=== PATIENT | female | born 2000 | race Caucasian/White ===

== ENCOUNTER 2023-06-20 08:00 | Outpatient (CLI) | payer MEDICAID ==
[2023-06-20 22:57] LABS: CHLAMYDIA TRACHOMATIS DNA NEGATIVE (NEGATIVE); NEISSERIA GONORRHOEAE DNA NEGATIVE (NEGATIVE); TRICHOMONAS VAGINALIS DNA NEGATIVE (NEGATIVE)
== END 2023-06-20 23:59 | disposition home or self-care (01) ==
LOC: LAB.WC 08:00
PROVIDERS: ATTEND Nurse Practitioner
DX: Z11.3 Encounter for screening for infections with a predominantly sexual mode of transmission (principal)
CPT/HCPCS: 87491; 87591; 87661

== ENCOUNTER 2024-01-26 08:00 | Outpatient (CLI) | payer MEDICAID ==
--- NOTE | 2024-01-26 10:17 | XRAY Report ---
PROCEDURE: Chest 2V INDICATIONS: ACUTE COUGH TECHNIQUE: 2 views of the chest were acquired. COMPARISON: None. FINDINGS: Surgical changes and devices: None. Lungs and pleura: No pleural effusions or pneumothorax. Lungs are clear. Mediastinum: Mediastinal contours appear normal. Heart size is normal. Bones and chest wall: No suspicious bony lesions. Overlying soft tissues appear unremarkable. IMPRESSION: No acute cardiopulmonary process. Reviewed by: Mk Chi MD on 01/26/2024 10:15 AM PDT Approved by: Mk Chi MD on 01/26/2024 10:15 AM PDT Station ID: [id number]
== END 2024-01-26 23:59 | disposition home or self-care (01) ==
LOC: DI.S 08:00
PROVIDERS: ATTEND Registered Nurse
DX: R05.1 Acute cough (principal)

== ENCOUNTER 2024-01-30 06:38 | Emergency (ER) | payer MEDICAID ==
[2024-01-30 07:00] VITALS: BP 117/71; O2SAT 98
--- NOTE | 2024-01-30 07:25 | ED Physician Documentation ---
PD HPI URI - Stated complaint Stated Complaint: COUGH,UNWELL - Chief complaint Chief Complaint: Resp - Additional information Additional information: Generally healthy 23-year-old female with more than 2 weeks of URI symptoms. She reports that she has had cough congestion and generalized malaise over the past 2 weeks. She has been seen at an outside urgent care twice. She is the first time she had a viral panel which was negative. She was given antibiotics. The next time she had a chest x-ray which was clear. She was given an inhaler. She is using an inhaler with some relief. She is never had asthma before is not having fevers. Has been home from work for the entire duration of this illness. No myalgias no sputum production no ill contacts. Review of Systems Constitutional: denies: Fever, Myalgias Nose: denies: Rhinorrhea / runny nose Respiratory: reports: Cough, Wheezing PD PAST MEDICAL HISTORY - Past Medical History Past Medical History: No - Past Surgical History Past Surgical History: No - Present Medications Home Medications: Ambulatory Orders Medication Instructions Recorded Confirmed Albuterol Sulfate [Proair 2 puffs IH Q6HR PRN 01/30/24 01/30/24 Digihaler] Benzonatate [Tessalon] 1 cap PO TID PRN 01/30/24 01/30/24 Ondansetron Odt [Zofran] 4 mg TL Q6H PRN #10 tablet 01/30/24 predniSONE [Deltasone] 40 mg PO DAILY #8 tab 01/30/24 - Allergies Allergies/Adverse Reactions: Allergies Allergy/AdvReac Type Severity Reaction Status Date / Time No Known Drug Allergies Allergy Verified 01/30/24 06:51 - Social History Does the pt smoke?: No Smoking Status: Never smoker Does the pt drink ETOH?: No Does the pt have substance abuse?: No - Immunizations Immunizations are current?: Yes - POLST Patient has POLST: No PD ED PE NORMAL - Vitals Vital signs reviewed: Yes - General General: Alert and oriented X 3, No acute distress - HEENT HEENT: Ears normal, Moist mucous membranes, Pharynx benign - Neck Neck: Supple, no meningeal sign - Cardiac Cardiac: RRR, No murmur - Respiratory Respiratory: Other (Clear bilaterally. With forced expiration does have a little bit of wheeze and cough. No respiratory distress) - Abdomen Abdomen: Soft - Derm Derm: No rash Results - Vitals Vitals: Vital Signs - 24 hr 01/30/24 06:44 Temperature 37.2 C Heart Rate 95 Respiratory 18 Rate Blood Pressure 117/71 O2 Saturation 98 Oxygen O2 Source Room air PD Medical Decision Making - ED course Complexity details: considered differential, d/w patient ED course: URI symptoms for more than 2 weeks. Viral panel and chest x-ray have been negative which is not surprising. She has a nonspecific viral illness. She does have some bronchospasm and cough associated with that she has been getting relief from inhalers, may be a little bit of prednisone may help with the wheezy cough. Will give her 40 mg here and prescription for 4 more days. She should continue the albuterol as needed and otherwise vzzr-nxd-[id number] meds. We discussed the fact that antibiotics will not help with this. She requested an IV for fluids, I note she is quite well-hydrated. Will give her some p.o. Zofran and encourage oral hydration. Departure - Departure
[2024-01-30] MEDS: predniSONE 20 MG TABLET PO STA (07:38)
== END 2024-01-30 07:41 | disposition home or self-care (01) ==
LOC: ED 06:38
DX: J98.01 Acute bronchospasm (principal); R05.9 Cough, unspecified; R06.2 Wheezing; Z79.899 Other long term (current) drug therapy
CPT/HCPCS: 99283; J7512

== ENCOUNTER 2024-03-05 08:00 | Outpatient (CLI) | payer MEDICAID ==
[2024-03-05 22:28] LABS: CHLAMYDIA TRACHOMATIS DNA NEGATIVE (NEGATIVE); NEISSERIA GONORRHOEAE DNA NEGATIVE (NEGATIVE); TRICHOMONAS VAGINALIS DNA NEGATIVE (NEGATIVE)
== END 2024-03-05 23:59 | disposition home or self-care (01) ==
LOC: LAB.WC 08:00
PROVIDERS: ATTEND Nurse Practitioner
DX: Z11.3 Encounter for screening for infections with a predominantly sexual mode of transmission (principal)
CPT/HCPCS: 87491; 87591; 87661

== ENCOUNTER 2024-04-11 08:52 | Outpatient (CLI) | payer MEDICAID ==
[2024-04-11 14:58] LABS: BASOPHILS # (AUTO) 0.1 10^3/uL (0.0-0.1); EOSINOPHILS # (AUTO) 0.1 10^3/uL (0.0-0.7); EOSINOPHILS % (AUTO) 1.1 %; HCT - HEMATOCRIT 41.1 % (37.0-47.0); HGB - HEMOGLOBIN 13.9 g/dL (12.0-16.0); LYMPHOCYTES # (AUTO) 2.7 10^3/uL (1.5-3.5); MEAN CORPUSCULAR HGB CONC 33.8 g/dL (32.0-36.0); MEAN CORPUSCULAR VOLUME 91.5 fL (81.0-99.0); MEAN PLATELET VOLUME 9.9 fL (7.9-10.8); MONOCYTES # (AUTO) 0.7 10^3/uL (0.0-1.0); NEUTROPHILS # (AUTO) 6.3 10^3/uL (1.5-6.6); NEUTROPHILS % (AUTO) 63.6 %; PLT - PLATELET COUNT 379 10^3/uL (130-450); RED BLOOD COUNT 4.49 10^6/uL (4.20-5.40); RED CELL DISTRIBUTION WIDTH 12.7 % (12.0-15.0); WHITE BLOOD COUNT 9.9 x10^3/uL (4.8-10.8)
[2024-04-12 03:10] LABS: HBsAG SCREEN Negative (Negative)
[2024-04-12 08:10] LABS: VARICELLA-ZOSTER AB IGG 199 index (Immune >165)
[2024-04-12 13:11] LABS: RPR Non Reactive (Non Reactive)
[2024-04-13 01:08] LABS: HIV SCREEN 4TH GENERATION Non Reactive (Non Reactive)
== END 2024-04-11 08:53 | disposition home or self-care (01) ==
LOC: LAB.S 08:52
PROVIDERS: ATTEND Nurse Practitioner
DX: Z31.69 Encounter for other general counseling and advice on procreation (principal)
CPT/HCPCS: 36415; 84702; 85025; 86592; 86762; 86787; 86803; 86850; 86900; 86901; 87340; 87389

== ENCOUNTER 2024-04-15 10:32 | Outpatient (CLI) | payer MEDICAID | END 2024-04-15 10:33 | disposition home or self-care (01) | LOC: LAB 10:32 | PROVIDERS: ATTEND Nurse Practitioner | DX: Z32.01 Encounter for pregnancy test, result positive (principal) | CPT/HCPCS: 36415; 84702 ==

== ENCOUNTER 2024-05-07 08:00 | Outpatient (CLI) | payer MEDICAID ==
[2024-05-07 15:56] LABS: BILIRUBIN,URINE NEGATIVE (NEGATIVE); GLUCOSE, URINE (UA) NEGATIVE (NEGATIVE); KETONES,URINE (UA) 40 mg/dL (NEGATIVE); LEUKOCYTE ESTERASE, URINE NEGATIVE (NEGATIVE); NITRITE,URINE NEGATIVE (NEGATIVE); OCCULT BLOOD,URINE MODERATE (NEGATIVE); PROTEIN,URINE NEGATIVE (NEGATIVE); UROBILINOGEN,URINE 0.2 (NORMAL) E.U./dL (NORMAL)
[2024-05-07 15:57] LABS: CLARITY,URINE CLOUDY (CLEAR)
[2024-05-07 15:59] LABS: BACTERIA,URINE Many /HPF (None Seen); SQUAMOUS EPITHELIAL CELL,UR NONE SEEN (<= Few)
== END 2024-05-07 23:59 | disposition home or self-care (01) ==
LOC: LAB.WC 08:00
PROVIDERS: ATTEND Nurse Practitioner
DX: Z34.90 Encounter for supervision of normal pregnancy, unspecified, unspecified trimester (principal)
CPT/HCPCS: 81001; 87086

== ENCOUNTER 2024-05-13 13:43 | Outpatient (CLI) | payer MEDICAID ==
--- NOTE | 2024-05-13 18:54 | Ultrasound Report ---
PROCEDURE: OB 1st Trimester w/TV INDICATIONS: POSITIVE TEST OUTSIDE/PRIOR DATING DATA: Last menstrual period (LMP): 03/16/2024. LMP-based estimated date of delivery (DAVID): 12/21/2024. First dating scan (date and location): 05/13/2024. Estimated date of delivery (DAVID) from first dating scan: 12/19/2024. TECHNIQUE: Real-time scanning was performed of the fetus and maternal pelvic organs, with image documentation. Endovaginal scanning was also performed to better visualize the fetus and maternal ovaries. COMPARISON: None. FINDINGS: Intrauterine gestational sac present. Embryo: pole with crown-rump length measuring 1.5 cm, consistent with 8 weeks and 4 days. Heart rate: 164 bpm. Other: No perigestational fluid collection. Normal yolk sac is identified. Measurement variability in dating: +/- 4 weeks by LMP, +/- 7 days by mean sac diameter (use before 6 weeks gestation if crown-rump length not able to be measured), +/- 5 days by crown-rump length (6-12 weeks gestation). Maternal organs: Ovaries appear within normal limits. Right corpus luteal cyst measuring 2.5 cm. IMPRESSION: Single live intrauterine consistent with 8 weeks and 4 days. Reviewed by: Akin Mclaughlin MD on 05/13/2024 6:52 PM PDT Approved by: Akin Mclaughlin MD on 05/13/2024 6:52 PM PDT Station ID: [id number]
== END 2024-05-13 13:44 | disposition home or self-care (01) ==
LOC: DI 13:43
PROVIDERS: ATTEND Nurse Practitioner
DX: Z34.91 Encounter for supervision of normal pregnancy, unspecified, first trimester (principal)

== ENCOUNTER 2024-06-07 08:39 | Outpatient (CLI) | payer MEDICAID ==
[2024-06-07 08:56] LABS: BASOPHILS # (AUTO) 0.1 10^3/uL (0.0-0.1); BASOPHILS % (AUTO) 0.6 %; EOSINOPHILS # (AUTO) 0.1 10^3/uL (0.0-0.7); EOSINOPHILS % (AUTO) 0.9 %; HCT - HEMATOCRIT 38.1 % (37.0-47.0); HGB - HEMOGLOBIN 13.1 g/dL (12.0-16.0); LYMPHOCYTES # (AUTO) 2.4 10^3/uL (1.5-3.5); LYMPHOCYTES % (AUTO) 25.4 %; MEAN CORPUSCULAR HEMOGLOBIN 29.8 pg (27.0-31.0); MEAN CORPUSCULAR HGB CONC 34.4 g/dL (32.0-36.0); MEAN CORPUSCULAR VOLUME 86.8 fL (81.0-99.0); MEAN PLATELET VOLUME 9.5 fL (7.9-10.8); MONOCYTES # (AUTO) 0.5 10^3/uL (0.0-1.0); MONOCYTES % (AUTO) 4.9 %; NEUTROPHILS # (AUTO) 6.5 10^3/uL (1.5-6.6); NEUTROPHILS % (AUTO) 67.7 %; PLT - PLATELET COUNT 346 10^3/uL (130-450); RED BLOOD COUNT 4.39 10^6/uL (4.20-5.40); RED CELL DISTRIBUTION WIDTH 11.7 % (12.0-15.0); WHITE BLOOD COUNT 9.6 x10^3/uL (4.8-10.8)
[2024-06-08 01:08] LABS: HIV SCREEN 4TH GENERATION Non Reactive (Non Reactive)
[2024-06-08 04:10] LABS: HBsAG SCREEN Negative (Negative)
[2024-06-08 06:11] LABS: RPR Non Reactive (Non Reactive)
[2024-06-08 13:10] LABS: VARICELLA-ZOSTER AB IGG 157 index (Immune >165)
[2024-06-08 23:09] LABS: HCV AB Non Reactive (Non Reactive)
== END 2024-06-07 08:40 | disposition home or self-care (01) ==
LOC: LAB 08:39
PROVIDERS: ATTEND Nurse Practitioner
DX: Z34.90 Encounter for supervision of normal pregnancy, unspecified, unspecified trimester (principal)
CPT/HCPCS: 36415; 85025; 86592; 86762; 86787; 86803; 86850; 86900; 86901; 87340; 87389

== ENCOUNTER 2024-06-12 11:43 | Outpatient (CLI) | payer MEDICAID ==
[2024-06-12 11:55] LABS: BILIRUBIN,URINE NEGATIVE (NEGATIVE); GLUCOSE, URINE (UA) NEGATIVE (NEGATIVE); KETONES,URINE (UA) NEGATIVE (NEGATIVE); LEUKOCYTE ESTERASE, URINE TRACE (NEGATIVE); NITRITE,URINE NEGATIVE (NEGATIVE); OCCULT BLOOD,URINE SMALL (NEGATIVE); PROTEIN,URINE NEGATIVE (NEGATIVE); UROBILINOGEN,URINE 0.2 (NORMAL) E.U./dL (NORMAL)
[2024-06-12 12:24] LABS: BACTERIA,URINE Moderate /HPF (None Seen); CLARITY,URINE CLEAR (CLEAR); RBC,URINE 0-5 /HPF (0-5); SQUAMOUS EPITHELIAL CELL,UR MOD Squamous (<= Few); WBC,URINE 0-3 /HPF (0-5)
[2024-06-12 12:57] LABS: MUCUS,URINE Moderate Strands
[2024-06-12 18:07] LABS: CHLAMYDIA TRACHOMATIS DNA NEGATIVE (NEGATIVE); NEISSERIA GONORRHOEAE DNA NEGATIVE (NEGATIVE); TRICHOMONAS VAGINALIS DNA NEGATIVE (NEGATIVE)
== END 2024-06-12 11:44 | disposition home or self-care (01) ==
LOC: LAB.WC 11:43
PROVIDERS: ATTEND Nurse Practitioner
DX: Z34.90 Encounter for supervision of normal pregnancy, unspecified, unspecified trimester (principal)
CPT/HCPCS: 81001; 87086; 87491; 87591; 87661

== ENCOUNTER 2024-12-02 18:52 | Inpatient (IN) ==
[2024-12-02] MEDS: LACTATED RINGERS 1,000 ML IV SCH (19:10)
[2024-12-02] MEDS ORDERED: LACTATED RINGERS 1,000 ML ONE (19:12)
[2024-12-02] MEDS ORDERED: ceFAZolin (2G) 2 GM in SODIUM CHLORIDE 0.9% MINIBAG 100 ML IV ONE (19:18)
--- NOTE | 2024-12-02 19:18 | HISTORY & PHYSICAL EXAMINATION ---
Admit History Smoking Status: Never smoker Other Maternal History Other Maternal History: HPI: Patient is a 24-year-old at 37 weeks 2 days gestation presenting with contractions that started approximately 45 minutes ago. On arrival, she is still breech presentation and approxi-5 cm dilated, jackie regularly. Decision made to proceed with primary low-transverse section.. She has good movement. Denies loss of fluid. No LOPEZ/BV or RUQP. No vaginal bleeding. Denies nausea and vomiting. Denies urinary urgency or dysuria. All other symptoms reviewed and were negative except per HPI. Course Problems: Breech presentation ALLERGIES: NKDA RX: PNV, Tums, Omeprazole LMP: 03/16/24 DAVID by LMP: 12/21/24 US: 05/13/2024 @ 8.4wks c/w LMP dating (DAVID by U/S 12/20/2023) Final DAVID: 12/21/2024 Pre- Weight:155.6 BMI: 24.46 Blood type: O- RHOGAM 10/11/24 Rh: negative Antibody: Negative CBC: PLT 346 HCT 38.1% HGB 13.1 RUB:IMMUNE VZV: NON-immune HBsAg: Negtive HepC: NR RPR/AB-EIA: NR HIV: NR PAP:03/03/24 - normal GC/CT: Negative HSV:denies in self and partner Genetic testing: Quad- negative FAS: Placenta: Posterior Cord: 3VC JEANMARIE: 10.9cm EFW: 36.7g; 79%tile 50gm OGCT: 132 TDAP: 11/30/2024 Breast Pump:10/11/24 RHOGAM: 10/11/24 Antibody screen: Negative 3rd trimester H/H/PLT- 12.6/37.6/383 3rd trimester RPR-NR GBS: 11/30/2024 MOD: Anticipate Contraception: Meds/Allgy Home Medications Ambulatory Orders Medication Instructions Recorded Confirmed vits no.126-ferrous fum tab PO .DAILY 07/18/24 11/30/24 28 mg iron-folic acid 800 mcg tablet (Classic ) calcium carbonate (Tums) 300 mg PO BID 08/31/24 11/30/24 omeprazole 20 mg capsule,delayed 20 mg PO BID #60 caps 01/13/25 02/28/25 release Allergies Allergies Allergy/AdvReac Type Severity Reaction Status Date / Time No Known Drug Allergies Allergy Verified 11/30/24 12:59 PFSH Active Problems All Active Problems (Updated 12/02/24 @ 19:23 by Matty Sharpe MD) 37 weeks gestation of (Acute) Breech presentation (Acute) Gastric reflux (Acute) Dyspareunia (Acute) Urinary incontinence in female (Acute) Dysuria (Acute) Normal first in second trimester (Acute) Encounter for other specified screening (Acute) Vaginismus not due to a substance or known physiological condition (Acute) Normal in first trimester (Acute) Ovarian cyst (Acute) Family History Family History Mother Depressed Father Depressed Maternal grandfather Depressed Social History Social History Smoking Status: Never smoker Second hand tobacco smoke exposure: No Do you dip or chew tobacco?: No Do you vape?: No Living arrangement: At home Living Condition: With spouse/s.o. Level: Independent Do you feel safe in your home environment?: Yes Suffered physical, verbal, emotional, or financial abuse?: No History of Abuse: No ETOH Use: None Substance Use: denies use Are you sexually active?: Yes Control Method: None POLST Patient has POLST: No Review of Systems Status of ROS: 10 or more systems reviewed and unremarkable except as noted in history and below Physical Other Notes Labor Progress Note/Additional Text: General: Alert, oriented, no acute distress Head: Normal cephalic atraumatic Eyes: PERRLA, extraocular motions intact. Respiratory: Normal rate of respiration. No accessory muscle use, normal respiratory effort. Cardiovascular: Regular rate and rhythm Abdomen: Gravid, nontender, nondistended Extremities: Normal range of motion Neuro: Oriented x3. Normal movements Psych: Appropriate mood and affect. Normal judgment and insight SVE: 5 cm dilated with a bulging bag. FHT: 120 beats minute baseline, moderate variability, elevations present, no decelerations. Category 1. Mabie: Approximately 3 minutes Plan for Labor Plan For Labor I expect patient to be DC'd or transferred within 96 hours.: Yes Conclusion/Plan Problem List (1) Breech presentation: Plan: Patient jackie regularly, 5 cm dilated. Plan for section. 2 g cefazolin. section was recommended. Risks, benefits and alternatives were discussed including but not limited to infection, bleeding that may require blood products or hysterectomy for life saving measures, injury to surrounding organs including but not limited to bowel, bladder, ureters, tubes and ovaries and/or the baby. Should injury occur it could require longer/additional surgery to repair. The patient stated understanding and desired to proceed. All questions were answered posed by patient. (2) 37 weeks gestation of : Plan: Reassuring heart monitoring.
[2024-12-02] MEDS ORDERED: PHENYLEPHRINE 10 MG/ML VIAL ONE (19:24)
[2024-12-02 19:27] LABS: BASOPHILS % (AUTO) 0.5 %; EOSINOPHILS % (AUTO) 0.6 %; HCT - HEMATOCRIT 34.4 % (37.0-47.0); HGB - HEMOGLOBIN 11.4 g/dL (12.0-16.0); LYMPHOCYTES % (AUTO) 10.7 %; MEAN CORPUSCULAR HGB CONC 33.1 g/dL (32.0-36.0); MEAN CORPUSCULAR VOLUME 87.5 fL (81.0-99.0); MEAN PLATELET VOLUME 9.5 fL (7.9-10.8); MONOCYTES % (AUTO) 9.2 %; NEUTROPHILS % (AUTO) 77.5 %; PLT - PLATELET COUNT 382 10^3/uL (130-450); RED BLOOD COUNT 3.93 10^6/uL (4.20-5.40); RED CELL DISTRIBUTION WIDTH 14.1 % (12.0-15.0); WHITE BLOOD COUNT 24.6 x10^3/uL (4.8-10.8)
[2024-12-02] MEDS ORDERED: ceFAZolin 2 GM VIAL ONE (19:30)
[2024-12-02] MEDS: ACETAMINOPHEN 500 MG TABLET PO ONE (19:33)
[2024-12-02] MEDS: CITRIC ACID/SODIUM CITRATE 15 ML UDC PO ONE (19:34)
[2024-12-02 19:35] LABS: ABNORMAL LYMPHS % (MANUAL) 0 %
[2024-12-02 19:55] LABS: BAND NEUTROPHILS % (MANUAL) 14 %; DIFFERENTIAL COMMENT MANUAL DIFFERENTIAL; EOSINOPHILS # (MANUAL) 0.2 10^3/uL (0-0.7); LYMPHOCYTES # (MANUAL) 2.5 10^3/uL (1.5-3.5); LYMPHOCYTES % (MANUAL) 10 %; METAMYELOCYTES % (MANUAL) 1 %; MONOCYTES # (MANUAL) 0.7 10^3/uL (0.0-1.0); MYELOCYTES % (MANUAL) 2 %; NEUTROPHILS # (MANUAL) 20.4 10^3/uL (1.5-6.6); PLATELET ESTIMATE, MANUAL NORMAL (130-450,000) (NORMAL); PLATELET MORPHOLOGY NORMAL APPEARANCE (NORMAL); RBC MORPHOLOGY (MULTIPLE) NORMAL APPEARANCE (NORMAL); WBC MORPHOLOGY (MULTIPLE) NORMAL APPEARANCE (NORMAL)
[2024-12-02] MEDS ORDERED: ROPIVACAINE 0.5% PF 20 ML VIAL ONE (20:25)
[2024-12-02] MEDS ORDERED: SODIUM CHLORIDE 0.9% 10 ML VIAL IVP ONE (20:26)
[2024-12-02] MEDS ORDERED: ONDANSETRON ODT 4 MG TABLET TL PRN (20:41)
[2024-12-02] MEDS ORDERED: OXYTOCIN/SODIUM CHLORIDE 500 ML IV PRN (20:41)
--- NOTE | 2024-12-02 20:42 | OPERATIVE REPORT ---
Operative Report General Admit Date: 12/02/24 Procedure Data: Operation Date: 12/02/24 20:00 Proposed Procedures p Section(Not Applicable) - Matty Sharpe MD Actual Procedures p Section(Not Applicable) - Matty Sharpe MD Anesthesia Type Spinal Case Staff Anesthesia Provider: Waqas Pan Assisting Provider: Yvonne Cui Case Times Procedure Start: 12/02/24 19:58 Procedure End: 12/02/24 20:35 Time out: 12/02/24 19:55 Pre-Op Diagnosis: Breech presentation, term labor, 37 weeks gestation Post Op Diagnosis: Status post primary low-transverse section Procedure Note Intake, IV Amount (ml): 1,000 Estimated Blood Loss (ml): 650 Output, Urine Amount (ml): 400 Pathology: None Findings: Normal-appearing uterus and ovaries. 1 cm right paratubal cyst. Liveborn with Apgars of 8/9. Complications: None Other Other Information/Narrative: section was recommended. Risks, benefits and alternatives were discussed including but not limited to infection, bleeding that may require blood products or hysterectomy for life saving measures, injury to surrounding organs including but not limited to bowel, bladder, ureters, tubes and ovaries and/or the baby. Should injury occur it could require longer/additional surgery to repair. The patient stated understanding and desired to proceed. All questions were answered posed by patient. Prior to being taken to the OR, 2 grams of cefazolin IV was administered. The patient was taken to the operating room where regional anesthesia was found to be adequate. She was then prepared and draped in the usual sterile fashion in the dorsal supine position with a leftward tilt displacing the uterus. Gannon was draining to gravity. SCDs were on bilateral lower extremities. Time out was felipe en. A pfannenstiel skin incision was then made with the scalpel and carried through to the underlying layer of fascia. The fascia was incised in the midline and the incision extended laterally with the Martinez scissors. The superior aspect of the facial incision was then grasped with the Micky clamps, elevated and the underlying rectus muscles dissected off sharply. Attention was then turned to th e inferior aspect of this incision which in a similar fashion was grasped, elevated with the Micky clamps and the rectus muscle dissected off sharply. The rectus muscles were in the midline. The peritoneum identified, grasped with the pick-ups and entered sharply with the Metzenbaum scissors. The peritoneal incision was then extended superiorly and inferiorly with good visualization of the bladder. The bladder blade was inserted. The vesicouterine peritoneum was identified, grasped with the pick-ups, and entered sharply with Metzenbaum scissors. This incision was then extended laterally and the bladder flap created digitally. The bladder blade was reinserted. The lower uterine segment was identified and incised in a transverse fashion with the scalpel. The uterine incision was then extended bluntly laterally. Artificial rupture of membranes demonstrated clear fluid. The bladder blade was removed. The fetus was in a breech presentation. The buttocks was lifted through the hysterotomy until the legs delivered spontaneously. Again using gentle pressure, the was rotated anteriorly and the left arm was medially rotated flexed, then extended through the hysterotomy. The fetus is then rotated to the opposite side and the right arm was similarly delivered. The head delivered easily thereafter with gentle pressure. The infants mouth and nose were bulb suctioned. The umbilical cord was clamped times two and cut. The infant was handed to the pediatric team. The placenta was removed with gentle traction. Oxytocin was added to the IV fluid and was allowed to run freely. The uterus was exteriorized and cleared of all clots and debris. The uterine incision was inspected and found to be without any extensions and was repaired with 0 Vicryl in a running, locked fashion. A second imbricating layer was performed. Upon inspection, the repaired hysterotomy was found to be hemostatic. The uterus was firm and returned to the abdomen. The gutters were cleared of all clots and debris. The muscle layer was examined and found to be hemostatic. The fascia was reapproximated with 0 Vicryl in a running fashion. The subcutaneous tissue was closed with 2-0 Vicryl. The skin was closed in a subcuticular fashion with 4-0 Monocryl. The patient tolerated the procedure well. Sponge, lap and needle counts were correct times three. The patient was taken to the recovery room in stable condition. I appreciate the assistance of TSERING Velazco during this procedure, and the assistance in retraction, visualization, dissection, and overall assistance during the case were instrumental to the patient's wellbeing. APGARs: 8/9 weight: Pending
--- NOTE | 2024-12-02 21:14 | ANESTHESIA PROCEDURE NOTE ---
Pre-Anesthesia VS, & Labs Diagnosis Surgical Diagnosis:: laboring/breech presentation Procedure Procedure: c section Vitals Weight (kg): 94 kg NPO Last Food Intake: 1830, beef stew Is Patient ?: Yes Estimated Due Date:: 12/02/24 Lab Results Current Lab Results: Laboratory Tests 12/02/24 19:04: WBC 24.6 H, RBC 3.93 L, Hgb 11.4 L, Hct 34.4 L, MCV 87.5, MCH 29.0, MCHC 33.1, RDW 14.1, Plt Count 382, MPV 9.5, Neut # (Auto) Not Reportable, Lymph # (Auto) Not Reportable, [place] # (Auto) Not Reportable, Eos # (Auto) Not Reportable, Baso # (Auto) Not Reportable, Absolute Nucleated RBC Not Reportable, Total Counted 100, Band Neuts % (Manual) 14 H, Abnorm Lymph % (Manual) 0, M etamyelocytes % 1 H, Myelocytes % 2 H, Nucleated RBC % Not Reportable, N eutrophils # (Manual) 20.4 H, Lymphocytes # (Manual) 2.5, Monocytes # (Manual) 0.7, Eosinophils # (Manual) 0.2, Basophils # (Manual) 0.0, Differential Comment MANUAL DIFFERENTIAL, WBC Morphology NORMAL APPEARANCE, Platelet Estimate NORMAL (130-450,000), Platelet Morphology NORMAL APPEARANCE, RBC Morph Micro Appear NORMAL APPEARANCE, Blood Type O NEGATIVE, Antibody Screen POSITIVE Lab results reviewed: Yes 12/02/24 19:04 Meds/Allgy Home Medications Ambulatory Orders Medication Instructions Recorded Confirmed vits no.126-ferrous fum tab PO .DAILY 07/18/24 11/30/24 28 mg iron-folic acid 800 mcg tablet (Classic ) calcium carbonate (Tums) 300 mg PO BID 08/31/24 11/30/24 omeprazole 20 mg capsule,delayed 20 mg PO BID #60 caps 10/15/24 11/30/24 release Allergies Allergies Allergy/AdvReac Type Severity Reaction Status Date / Time No Known Drug Allergies Allergy Verified 11/30/24 12:59 PFSH Active Problems All Active Problems 37 weeks gestation of (Acute) Breech presentation (Acute) Gastric reflux (Acute) Dyspareunia (Acute) Urinary incontinence in female (Acute) Dysuria (Acute) Normal first in second trimester (Acute) Encounter for other specified screening (Acute) Vaginismus not due to a substance or known physiological condition (Acute) Normal in first trimester (Acute) Ovarian cyst (Acute) Family History Family History Mother Depressed Father Depressed Maternal grandfather Depressed Social History Social History Smoking Status: Never smoker Second hand tobacco smoke exposure: No Do you dip or chew tobacco?: No Do you vape?: No Living arrangement: At home Living Condition: With spouse/s.o. Level: Independent Do you feel safe in your home environment?: Yes Suffered physical, verbal, emotional, or financial abuse?: No History of Abuse: No ETOH Use: None Substance Use: denies use Are you sexually active?: Yes Control Method: None POLST Patient has POLST: No POLST Status: Full Code Anesthesia Exam (Expanded) Exam General: Alert and Moderate distress Dental: WNL Mouth Openin Fingerbreadth Neck Mobility: Normal Mallampati classification: II Thyromental Distance: 4-6 cm Plan Plan Anesthesia Type: Spinal and Transverse Abdominis Plane (TAP) Block (bilateral/ post op) Regional Block: Per Surgeon's request for Post Op pain control Consent for Procedure(s) Verified and Reviewed: Yes Code Status: Attempt Resuscitation ASA Classification ASA classification: 1-Healthy patient Is this case an emergency?: Yes
--- NOTE | 2024-12-02 21:16 | ANESTHESIA POST OP EVALUATION ---
Anesthesia Post Eval Post Anesthesia Eval CV Function Including HR & BP: Stable Pain Control: Satisfactory Nausea & Vomiting: Negative Mental Status: Baseline Respiratory Status: Airway Patent Hydration Status: Satisfactory Anesthesia Complications: None
[2024-12-02] MEDS ORDERED: METOCLOPRAMIDE 10 MG/2 ML VIAL IVP PRN (21:17)
[2024-12-02] MEDS ORDERED: ATROPINE ABBOJECT 1 MG/10 ML SYRINGE IVP PRN (21:17)
[2024-12-02] MEDS ORDERED: ONDANSETRON 4 MG/2 ML VIAL IVP PRN (21:17)
[2024-12-02] MEDS ORDERED: MORPHINE 2 MG/ML CARPUJECT IVP PRN (21:17)
[2024-12-02] MEDS ORDERED: NALOXONE 0.4 MG/ML VIAL IVP PRN (21:17)
[2024-12-02] MEDS ORDERED: ePHEDrine 50 MG/ML VIAL IVP PRN (21:17)
[2024-12-02] MEDS ORDERED: fentaNYL 100 MCG/2 ML VIAL IVP PRN (21:17)
[2024-12-02] MEDS ORDERED: HYDROmorphone 1 MG/ML CARPUJECT IVP PRN (21:35)
[2024-12-02] MEDS ORDERED: LACTATED RINGERS 1,000 ML IV SCH (22:00)
[2024-12-02] MEDS ORDERED: KETOROLAC 30 MG/ML VIAL ONE (22:26)
[2024-12-02] MEDS: KETOROLAC 30 MG/ML VIAL IVP SCH (22:28)
[2024-12-03] MEDS: LACTATED RINGERS 1,000 ML IV SCH (01:37)
[2024-12-03] MEDS: ACETAMINOPHEN 500 MG TABLET PO SCH (01:44)
[2024-12-03] MEDS ORDERED: KETOROLAC 30 MG/ML VIAL ONE (04:26)
[2024-12-03 05:50] LABS: BASOPHILS % (AUTO) 0.4 %; EOSINOPHILS % (AUTO) 0.4 %; HCT - HEMATOCRIT 30.7 % (37.0-47.0); HGB - HEMOGLOBIN 10.1 g/dL (12.0-16.0); LYMPHOCYTES % (AUTO) 10.6 %; MEAN CORPUSCULAR HGB CONC 32.9 g/dL (32.0-36.0); MEAN CORPUSCULAR VOLUME 88.2 fL (81.0-99.0); MEAN PLATELET VOLUME 9.3 fL (7.9-10.8); MONOCYTES % (AUTO) 8.1 %; NEUTROPHILS % (AUTO) 79.4 %; PLT - PLATELET COUNT 304 10^3/uL (130-450); RED BLOOD COUNT 3.48 10^6/uL (4.20-5.40); RED CELL DISTRIBUTION WIDTH 14.3 % (12.0-15.0); WHITE BLOOD COUNT 22.1 x10^3/uL (4.8-10.8)
[2024-12-03 06:00] LABS: ABNORMAL LYMPHS % (MANUAL) 0 %
[2024-12-03 06:22] LABS: BAND NEUTROPHILS % (MANUAL) 7 %; LYMPHOCYTES # (MANUAL) 3.5 10^3/uL (1.5-3.5); LYMPHOCYTES % (MANUAL) 16 %; MONOCYTES # (MANUAL) 1.5 10^3/uL (0.0-1.0)
[2024-12-03 06:23] LABS: PLATELET ESTIMATE, MANUAL NORMAL (130-450,000) (NORMAL); PLATELET MORPHOLOGY NORMAL APPEARANCE (NORMAL); RBC MORPHOLOGY (MULTIPLE) NORMAL APPEARANCE (NORMAL)
[2024-12-03 06:24] LABS: WBC MORPHOLOGY (MULTIPLE) NORMAL APPEARANCE (NORMAL)
[2024-12-03 06:25] LABS: DIFFERENTIAL COMMENT MANUAL DIFFERENTIAL
[2024-12-03] MEDS ORDERED: DOCUSATE SODIUM 100 MG CAPSULE PO ONE (07:41)
[2024-12-03] MEDS: DOCUSATE SODIUM 100 MG CAPSULE PO SCH (07:53)
[2024-12-03] MEDS: oxyCODONE 5 MG TABLET PO PRN (07:53)
--- NOTE | 2024-12-03 10:50 | PROVIDER PROGRESS NOTE ---
Subjective Subjective Subjective: Subjective Patient reports she is doing well. Lochia appropriate. Denies heavy bleeding. Ambulating. Pelvic and abdominal pain well-controlled. Tolerating oral intake. Diet: Regular. Voiding without difficulty. Passing flatus. Denies BM. Patient is bonding with baby in room Breast feeding going well. Denies feeling lightheaded, dizzy or excessively fatigued. Objective General: Alert, oriented, no apparent distress. Cardiovascular: Regular rate. Regular rhythm. Lungs: No increased work of breathing. Abdomen: Uterus firm. Below umbilicus. No guarding or rebound. Extremities: No pain on palpation. No cords palpated. Distal pulses intact. Incision: Bandage in place. Current Medications Current Medications Current Medications: Current Medications Generic Name Dose Route Start Last Admin Trade Name Freq PRN Reason Stop Dose Admin Acetaminophen 1,000 mg 12/03/24 00:00 12/03/24 07:52 Acetaminophen 500 Mg Tablet PO 1,000 mg Q6HR TWIN Administration Docusate Sodium 100 mg 12/03/24 09:00 12/03/24 07:53 Docusate Sodium 100 Mg Capsule PO 100 mg DAILY TWIN Administration Lactated Ringer's 1,000 mls @ 100 mls/hr 12/02/24 21:00 12/03/24 01:37 Lr IV 100 mls/hr .Q10H TWIN Administration Ibuprofen 600 mg 12/04/24 06:00 Ibuprofen 600 Mg Tablet PO Q6HR TWIN Ketorolac Tromethamine 30 mg 12/03/24 06:00 12/03/24 10:17 Ketorolac 30 Mg/Ml Vial IVP 12/03/24 18:01 30 mg Q6HR TWIN Administration Ondansetron HCl 4 mg 12/02/24 20:41 Ondansetron Odt 4 Mg Tablet TL Q4HR PRN Nausea / Vomiting Oxycodone HCl 5 mg 12/02/24 20:41 12/03/24 07:53 Oxycodone 5 Mg Tablet PO 5 mg Q4HR PRN Administration Moderate Pain (Level 4-6) Simethicone 80 mg 12/02/24 20:41 Simethicone Chew 80 Mg Tablet PO TID PRN Gas Objective Vital Signs/Intake & Output Vital Signs: Vital Signs x48h Temp Pulse Resp BP Pulse Ox 12/03/24 09:30 36 C L 98 16 112/62 98 12/03/24 04:35 36.7 C 79 16 110/63 97 Intake & Output: Intake & Output 11/30/24 12/01/24 12/02/24 12/03/24 23:59 23:59 23:59 23:59 Intake Total 3000 / 3000 800 / 800 Output Total 860 / 860 2600 / 2600 Balance 2140 / 2140 -1800 / -1800 Weight (kg) 207 lb 3.752 oz Lab Results 12/03/24 05:45 Other Labs: Lab Results x24hrs 12/03/24 12/02/24 Range/Units 05:45 19:04 WBC 22.1 H 24.6 H (4.8-10.8) x10^3/uL RBC 3.48 L 3.93 L (4.20-5.40) 10^6/uL Hgb 10.1 L 11.4 L (12.0-16.0) g/dL Hct 30.7 L 34.4 L (37.0-47.0) % MCV 88.2 87.5 (81.0-99.0) fL MCH 29.0 29.0 (27.0-31.0) pg MCHC 32.9 33.1 (32.0-36.0) g/dL RDW 14.3 14.1 (12.0-15.0) % Plt Count 304 382 (130-450) 10^3/uL MPV 9.3 9.5 (7.9-10.8) fL Neut # (Auto) Not Reportable Not Reportable Lymph # (Auto) Not Reportable Not Reportable [place] # (Auto) Not Reportable Not Reportable Eos # (Auto) Not Reportable Not Reportable Baso # (Auto) Not Reportable Not Reportable Absolute Nucleated RBC Not Reportable Not Reportable Total Counted 100 100 Band Neuts % (Manual) 7 14 H (0 - 10) % Abnorm Lymph % (Manual) 0 0 % Metamyelocytes % 1 H ( - 0) % Myelocytes % 2 H ( - 0) % Nucleated RBC % Not Reportable Not Reportable Neutrophils # (Manual) 17.0 H 20.4 H (1.5-6.6) 10^3/uL Lymphocytes # (Manual) 3.5 2.5 (1.5-3.5) 10^3/uL Monocytes # (Manual) 1.5 H 0.7 (0.0-1.0) 10^3/uL Eosinophils # (Manual) 0.0 0.2 (0-0.7) 10^3/uL Basophils # (Manual) 0.0 0.0 (0-0.1) 10^3/uL Differential Comment MANUAL DIFFERENTIAL MANUAL DIFFERENTIAL WBC Morphology NORMAL APPEARANCE NORMAL APPEARANCE (NORMAL) Platelet Estimate NORMAL (130-450,000) NORMAL (130-450,000) (NORMAL) Platelet Morphology NORMAL APPEARANCE NORMAL APPEARANCE (NORMAL) RBC Morph Micro Appear NORMAL APPEARANCE NORMAL APPEARANCE (NORMAL) Blood Type O NEGATIVE O NEGATIVE Weak D (Du) WEAK-D NEGATIVE Antibody Screen POSITIVE Antibody Identification Anti-D ALICIA, IgG Specific Not Reportable ALICIA, Polyspecific NEGATIVE ALICIA, C3d Specific Not Reportable Maternal Bleed NEGATIVE (NEGATIVE) Assessment/Plan Problem List (1) Delivery by section: Impression: Anticipate discharge in 2 days. Encouraged breast-feeding, ambulation. Routine postoperative care. She appears to be doing very well and anticipate few problems. Can remove the bandage later today. (2) Delivery outcome of storm : Qualifiers: outcome: live Qualified Code(s): Z37.0 - Single live
[2024-12-03] MEDS: IBUPROFEN 600 MG TABLET PO SCH (15:58)
[2024-12-03] MEDS ORDERED: RHO(D) IMMUNE GLOBULIN 300 MCG SYRINGE IVP ONE ×2 (18:01)
[2024-12-03] MEDS ORDERED: RHO(D) IMMUNE GLOBULIN 300 MCG SYRINGE IM ONE (18:13)
[2024-12-03] MEDS: RHO(D) IMMUNE GLOBULIN 300 MCG SYRINGE IVP ONE (20:23)
[2024-12-04 03:51] VITALS: O2SAT 98
[2024-12-04] MEDS ORDERED: IBUPROFEN 600 MG TABLET PO SCH (06:00)
[2024-12-04 09:16] VITALS: BP 113/72; TEMP 98.4
[2024-12-04] MEDS: SIMETHICONE CHEW 80 MG TABLET PO PRN (09:34)
--- NOTE | 2024-12-04 11:58 | PHARMACY PROGRESS NOTE ---
Best Possible Medication History Admit Date and Time: 12/02/24 191 Home Medications Medication Instructions Recorded Confirmed Type vit no.95-ferrous 1 tab PO DAILY 12/03/24 12/03/24 History fumarate 28 mg-folic acid 800 mcg tablet () pantoprazole 40 mg tablet,delayed 40 mg PO DAILY PRN heartburn 12/04/24 12/04/24 History release Processed by: Pharmacy (Medication Reconciliation completed by Internet SalespersonLisa) Medications reviewed in ED?: No Medication History completed: Yes Patient Interview: Completed Secondary Source(s): Insurance records [facility] Statement: As the person ultimately responsible for medication therapy, providers are able to order a medication from an existing home medication list in [facility] via the "Reconcile Routine" prior to Confirmation of that medication by clinical support nurse. Such practice is discouraged except when the physician, in their clinical judgment, deems that a medical need exists for a medication without regard to previous use.
[2024-12-04] MEDS ORDERED: oxyCODONE 5 MG TABLET PO PRN (13:17)
--- NOTE | 2024-12-04 13:30 | PROVIDER PROGRESS NOTE ---
Subjective Prog Note Date Prog Note Date: 12/04/24 Prog Note Time: 13:23 Subjective Subjective: Wilber reports she feels like she is overall doing well after . She was having increased pain, but this is a little better after taking off the binder when lying in bed. She has been up to the bathroom twice today by herself, urinating without difficulty and passing flatus. Tolerating regular diet. Reports lochia is minimal. She is , reports baby is eating well. She would like to go home this evening if possible. Would like to get up and take a shower today. Current Medications Current Medications Current Medications: Current Medications Generic Name Dose Route Start Last Admin Trade Name Freq PRN Reason Stop Dose Admin Acetaminophen 1,000 mg 12/03/24 00:00 12/04/24 08:06 Acetaminophen 500 Mg Tablet PO 1,000 mg Q6HR TWIN Administration Docusate Sodium 100 mg 12/03/24 09:00 12/04/24 08:35 Docusate Sodium 100 Mg Capsule PO 100 mg DAILY TWIN Administration Ibuprofen 600 mg 12/03/24 16:00 12/04/24 09:34 Ibuprofen 600 Mg Tablet PO 600 mg Q6H TWIN Administration Ondansetron HCl 4 mg 12/02/24 20:41 Ondansetron Odt 4 Mg Tablet TL Q4HR PRN Nausea / Vomiting Oxycodone HCl 5 - 10 mg 12/04/24 13:17 Oxycodone 5 Mg Tablet PO Q4HR PRN Severe Pain (Level 7-10) Simethicone 80 mg 12/02/24 20:41 12/04/24 09:34 Simethicone Chew 80 Mg Tablet PO 80 mg TID PRN Administration Gas Objective Vital Signs/Intake & Output Reviewed Vital Signs: Yes Vital Signs: Vital Signs x48h Temp Pulse Resp BP Pulse Ox 12/04/24 08:00 98.4 F 72 16 113/72 98 Intake & Output: Intake & Output 12/01/24 12/02/24 12/03/24 12/04/24 23:59 23:59 23:59 23:59 Intake Total 3000 / 3000 1800 / 1800 Output Total 860 / 860 3230 / 3230 Balance 2140 / 2140 -1430 / -1430 Weight (kg) 207 lb 3.752 oz Objective Comments/Other: Gen: NAD Chest: non labored respirations Abd: appropriately TTP, non distended, fundus firm Incision: bandage removed, incision is clean, intact, dry, with steri strips in place. Ext: no LE edema, no evidence of DVT Lab Results 12/03/24 05:45 Assessment/Plan Problem List (1) care and examination of lactating mother: Impression: Continue routine /postoperative care. Will increase oxycodone to 5-10mg PRN. Discussed we have other medications we can add on for pain control if needed today (gabapentin, hydroxyzine). Overall reports pain better with binder off while lying in bed. I encouraged her to let us know if she feels like she needs additional medications for pain. She is interested in discharge home this evening. Discussed if pain well controlled, OK for discharge tonight. Otherwise will plan to keep until tomorrow. (2) Delivery by section: (3) Acute blood loss anemia: Impression: - asyptomatic, plan for oral iron on discharge
--- NOTE | 2024-12-04 16:43 | Discharge Summary ---
Discharge Summary Admit Date: 12/02/24 Discharge Date: 12/04/24 Discharging Provider: sEtela Wang MD HPI History of Present Illness: Admission Diagnosis: - [facility] at 37w2d - Labor - Rh neg - Rubella immune - Varicella non immune Discharge Diagnosis: - Same, delivered - Acute blood loss anemia Procedures: primary LTCS Hospital Course: Wilber presented at 37w2d in labor, 5cm with breech presentation. She underwent primary LTCS, which was uncomplicated with an EBL of 650cc. Her course was uncomplicated. She desired discharge home on POD#2. Vital signs reviewed. LAB & IMAGING STUDIES: See below PLAN: Plan for discharge home with follow up in clinic in 1 week. Reviewed home care instructions and medications. Patient counseled regarding signs and symptoms of infection, excessive bleeding, vaginal rest and activity restrictions. Contraceptive plans to be formalized at visit. Discussed that additional support is available in our clinic if needed. Estela Wang MD ALLERGIES Allergies Allergy/AdvReac Type Severity Reaction Status Date / Time No Known Drug Allergies Allergy Verified 11/30/24 12:59 MEDICATIONS Ambulatory Orders Medication Instructions Recorded Confirmed vit no.95-ferrous 1 tab PO DAILY 12/03/24 12/03/24 fumarate 28 mg-folic acid 800 mcg tablet () acetaminophen 500 mg tablet 1,000 mg (2 x 500 mg) PO Q6HR PRN 12/04/24 pain #60 tabs docusate sodium 100 mg capsule 100 mg PO BID PRN constipation #60 12/04/24 caps ibuprofen 600 mg tablet 600 mg PO Q6H PRN pain #60 tabs 12/04/24 oxycodone 5 mg tablet 5 mg PO Q4HR PRN Severe Pain 12/04/24 (Level 7-10) #20 tabs pantoprazole 40 mg tablet,delayed 40 mg PO DAILY PRN heartburn 12/04/24 12/04/24 release simethicone 80 mg chewable tablet 80 mg PO TID PRN Gas #20 tabs 12/04/24 LABS 12/03/24 05:45 Discharge Plan Discharge Patient Disposition: 01 Home, Self Care Prescriptions: New acetaminophen 500 mg Tablet 1,000 mg PO Q6HR PRN (Reason: pain) Qty: 60 0RF docusate sodium 100 mg Capsule 100 mg PO BID PRN (Reason: constipation) Qty: 60 0RF ibuprofen 600 mg Tablet 600 mg PO Q6H PRN (Reason: pain) Qty: 60 0RF simethicone 80 mg Tablet,Chewable 80 mg PO TID PRN (Reason: Gas) Qty: 20 0RF oxycodone 5 mg Tablet 5 mg PO Q4HR PRN (Reason: Severe Pain (Level 7-10)) Qty: 20 0RF Continued PNV cmb#95-ferrous fumarate-FA [] 28 mg iron- 800 mcg tablet 1 tab PO DAILY pantoprazole 40 mg tablet,delayed release (DR/EC) 40 mg PO DAILY PRN (Reason: heartburn) Print Language: Tajik Patient Instructions: Childbirth Breast Care, , Depression , Change Expect Parents Follow-up Care: Matty Sharpe MD [Provider Admit Priv/Credential] - (1 week for incision check)
--- NOTE | 2024-12-04 17:40 | Labor Flowsheet ---
Labor Flowsheet Datetime Report Generated by CPN: 12/04/2024 17:40 Datetime: 12/03/2024 02:38 Amniotic Fluid Color: Clear Datetime: 12/02/2024 19:30 Pulse: 107 SpO2 (%): 98 LaborFlag: Labor Datetime: 12/02/2024 19:20 Stage of : Labor Patient Care Comments: [email or web address] Datetime: 12/02/2024 19:15 ANESTHESIA Anesthesia Plans: Spinal Anesthesia Comments: anesthesia at bedside; assessment done, consents obtained COMMUNICATION Communication: Provider at Bedside Provider Notified (Name): Pan,SWABBER Datetime: 12/02/2024 19:13 VITAL SIGNS NBP Sys/Conchis/Mean (mmHg): 126 : 81 : 88 Datetime: 12/02/2024 19:12 Communication Comments: POC discussed with pt, call for c/s by Dell, MD Datetime: 12/02/2024 19:07 PATIENT CARE IV/Blood Work: IV Started Datetime: 12/02/2024 18:57 VAGINAL EXAM Dilatation (cm): 5.0 Effacement (%): 100 Exam by: Sergio Cui CNM Vaginal Exam Comments: bulging bag
== END 2024-12-04 17:35 | disposition home or self-care (01) | DRG 787 ==
LOC: WFO 18:52 → FBP 18:55
PROVIDERS: ADMIT Obstetrics & Gynecology; ATTEND Obstetrics & Gynecology
DX: O90.81 Anemia of the puerperium; Z37.0 Single live birth; D62 Acute posthemorrhagic anemia; Z3A.37 37 weeks gestation of pregnancy; O32.1XX0 Maternal care for breech presentation, not applicable or unspecified